=== PATIENT | male | born 1955 | race Two or more races ===

== ENCOUNTER 2019-05-02 12:12 | Emergency (ER) | payer MEDICAID ==
[~2019-05-02] VITALS: Ht 170.2 cm; Wt 77.1 kg
--- NOTE | 2019-05-02 12:21 | NUR ---
CAME IN FOR R HAND PAIN S/P FALL LAST NIGHT, FELT DIZZY AND FELL, -KO, TO ER BED 10, HOOKED TO MONITOR, PROVIDED W WARM BLANKET, AWAITING MD RAMOS.
--- NOTE | 2019-05-02 12:42 | NUR ---
SABINE SMART AT BEDSIDE
[2019-05-02 13:47] VITALS: BP 141/80
--- NOTE | 2019-05-02 13:47 | NUR ---
Patient discharged to home in stable condition. Written and verbal after care instructions given. Patient verbalizes understanding of instruction.
== END 2019-05-02 13:48 | disposition home or self-care (01) ==
LOC: ER 12:12
DX: S60.221A Contusion of right hand, initial encounter (principal); R42 Dizziness and giddiness; E78.5 Hyperlipidemia, unspecified; I10 Essential (primary) hypertension; Z88.1 Allergy status to other antibiotic agents; W18.30XA Fall on same level, unspecified, initial encounter; Y93.89 Activity, other specified; Y92.89 Other specified places as the place of occurrence of the external cause; Y99.8 Other external cause status
CPT/HCPCS: 73130-TC